=== PATIENT | female | born 2000 | race Caucasian/White ===

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

== ENCOUNTER 2022-01-14 12:28 | Emergency (ER) | payer SELFPAY ==
[2022-01-14 12:30] VITALS: BP 117/68; PULSE 100; RESP 18; TEMP 36.8; O2SAT 98; BMI 34.2
[2022-01-14 12:52] LABS: Apearance,Urine Cloudy (Clear); Blood, Urine Negative (Negative); Color,Urine Yellow (Yellow); Glucose,Urine (UA) Negative (Negative); Ketones,Urine TRACE (Negative); PH,Urine 5.5 (5.0-8.5); Protein,Urine 2+ (Negative); Specific Gravity, Urine >= 1.030 (1.005-1.030)
[2022-01-14 12:53] LABS: Bilirubin,Urine 2+ (Negative); UTC Leukocyte Esterase,Urine 3+ (Negative); UTC Nitrate,Urine Negative (Negative); UTC Pregnancy Test, Urine Negative (Negative); Urobilinogen,Urine 1 EU/dl (0.2)
[2022-01-14 12:55] VITALS: BP 117/68; PULSE 100; RESP 18; TEMP 36.8; O2SAT 98
--- NOTE | 2022-01-14 12:55 | HMH.EDUTC ---
[facility] [place] Clinical Impression: Urinary tract infection Qualifiers: Urinary tract infection type: acute cystitis Hematuria presence: without hematuria Qualified Code(s): N30.00 - Acute cystitis without hematuria Vomiting Qualifiers: Vomiting type: unspecified Nausea presence: with nausea Qualified Code(s): R11.2 - Nausea with vomiting, unspecified Disposition: Home, Self-Care Condition on Discharge: Good Instructions: Urinary Tract Infection, Nausea and Vomiting-Adult Additional Instructions: Monitor temperature. Seek treatment if fever develops. Follow-up immediately if new or worse symptoms worsen or no noticeable improvement over 48 hours. Increase fluids such as water, Gatorade, Powerade, juice or Pedialyte with limited formula/dietary in children No food is okay as long as you are drinking. Once ready to eat start bland such as bananas, rice, applesauce, toast. Contagious until no diarrhea, vomiting, fever times 48 hours without medication Avoid antidiarrheals unless told otherwise. Best to let the virus run its course. Follow-up immediately for new or worsening symptoms or no noticeable improvement over the next 48 hours. Increase fluids, water and not soda or tea. Can drink cranberry juice or cranberry extract. White front to back Wear cotton underwear Empty bladder after intercourse Start antibiotics immediately and make sure you take the full course although you may start to see improvement over the next 48 hours. You can eat yogurt or take probiotics to decrease diarrhea or yeast infection caused by the antibiotic Be sure to follow-up anytime for new or worsening symptoms in 48 hours for wound urine culture results be sure to let you PCP no recent urine for culture so they can request records and ensure that you have appropriate antibiotic if you are not getting better or getting worse. If symptoms worsen or do not improve return or be seen in the ER. Follow-up with primary care this week. Prescriptions: cephALEXin [Cephalexin 500mg Tab] 500 mg PO BID 7 Days #14 tab [facility]: [facility] Ondansetron [Zofran 4mg ODT] 4 mg PO TIDP PRN 3 Days #14 tab PRN Reason: Nausea Transmission Status: Pending to [facility] Referrals: Gaby Ballard APRN [Primary Care Provider] - Time of Disposition: 12:58 Medical Decision Making - Akira Inquiry Pt receiving controlled substance: No Vital Signs: 05/01/22 12:30 Temperature 98.3 F Temperature Source Oral Pulse Rate [Right Brachial] 100 H Respiratory Rate 18 Blood Pressure [Right Arm] 117/68 Blood Pressure Mean [Right Arm] 84 Blood Pressure Source [Right Arm] Automatic Cuff Blood Pressure Position [Right Arm] Sitting 02 Sat by Pulse Oximetry 98 Oxygen Delivery Method Room Air - Lab Data Lab Results 01/14/22 12:50: Urine Color Yellow, Urine Appearance Cloudy, Urine pH 5.5, Ur Specific Mabel >= 1.030, Urine Protein 2+, Urine Glucose (UA) Negative, Urine Ketones Trace, Urine Blood Negative, Urine Nitrate Negative, Urine Bilirubin 2+ A, Urine Urobilinogen 1, Ur Leukocyte Esterase 3+ A, Tst Clinic Negative Orders (Tests/Meds): ORDERS Category Date Time Status Urine Culture Stat Micro 01/14/22 12:50 Ordered [facility] [place] HPI - General Chief complaint: Urgent [facility] Stated complaint: vomiting Time Seen by Provider: 01/14/22 12:55 Mode of Arrival: Ambulatory Source of Information: Patient Limitations: No Limitations Description of Symptoms (Recalled from Triage Doc. by RN): PATEINT C/O NAUSEA, VOMITING AND DIARRHEA SINCE THIS MORNING HEENT Symptoms (Recalled from RN notes): No Resp Symptoms (Recalled from RN notes): No Skin Symptoms (Recalled from RN notes): No MS Symptoms (Recalled from RN notes): No Functional Status (Recalled from RN notes): WNL - History of Present Illness Provider Complaint: 21 yr old female presnets for nausea/vomiting and diarreha that started this a
== END 2022-01-14 13:00 | disposition home or self-care (01) ==
PROVIDERS: Emergency Provider Nurse Practitioner Family; PCP Nurse Practitioner Family
DX: N30.00 Acute cystitis without hematuria (principal); F17.210 Nicotine dependence, cigarettes, uncomplicated
CPT/HCPCS: 81003; 81025; 87086; 99212; G0463

== ENCOUNTER 2022-01-21 11:23 | Emergency (ER) | payer SELFPAY ==
[2022-01-21 12:04] VITALS: BP 129/90; PULSE 84; RESP 18; TEMP 36.6; O2SAT 96; BMI 33.2
--- NOTE | 2022-01-21 12:18 | HMH.EDUTC ---
[facility] [place] Clinical Impression: Urinary tract infection Qualifiers: Urinary tract infection type: site unspecified Hematuria presence: with hematuria Qualified Code(s): N39.0 - Urinary tract infection, site not specified; R31.9 - Hematuria, unspecified Disposition: Home, Self-Care Condition on Discharge: Good Instructions: DI for Urinary Tract Infection (UTI), Phenazopyridine, Nitrofurantoin Additional Instructions: *Increase fluids. Water not Soda or Tea *Start antibiotic immediately and be sure to take as ordered for the FULL length of time although you should start to see improvement over the next 48 hours *Pyridium as needed Remember this medication will turn your urine Sperry. This is normal but it will stain what ever it gets on *You should not use Pyridium for more than 48 hours. If so , follow up with your primary physician to review urine culture and ensure that antibiotic is adequate for infection *Be SURE to follow up anytime for new or worsening symptoms with your family doctor. AND in 48 hours for urine culture results with your family doctor, if you do not have a doctor then you may call back to the [facility] for urine culture results and further treatment. We do recommend that you choose and establish care with a Primary Care Physician. AND follow up with them in 10-14 days to repeat UA to ensure infection is resolved and blood no longer present *Be sure to let your PCP know that we sent urine cultures from the [facility] so they can follow up to ensure that you area the on the correct antibiotic Call your doctor office and make appointment for 48 hours (2 days from today) to follow up and get the results of your urine culture and further treatment Prescriptions: Nitrofurantoin Monohyd/M-Cryst [Macrobid 100 mg Capsule] 100 mg PO BID #14 cap Transmission Status: Pending to [id number] Phenazopyridine HCl [Pyridium 200mg Tablet] 200 pow PO TID #6 tab Transmission Status: Pending to [id number] Referrals: Gaby Ballard APRN [Primary Care Provider] - As needed Time of Disposition: 12:29 Medical Decision Making - Akira Inquiry Pt receiving controlled substance: No Akira was queried for this patient: No Vital Signs: 01/21/22 12:04 Temperature 97.9 F Temperature Source Oral Pulse Rate [Left] 84 Respiratory Rate 18 Blood Pressure [Right Arm] 129/90 Blood Pressure Mean [Right Arm] 103 02 Sat by Pulse Oximetry 96 - Lab Data Lab results reviewed: Yes: I reviewed the patient's lab results. [facility] [place] - General Stated complaint: possible uti Time Seen by Provider: 01/21/22 12:18 Mode of Arrival: Ambulatory Source of Information: Patient Limitations: No Limitations Description of Symptoms (Recalled from Triage Doc. by RN): pt states that she had a UTI saturday. pt did have e.coli in urine culture. they toldher if she did not get better to come back. that is what she is here for HEENT Symptoms (Recalled from RN notes): No Resp Symptoms (Recalled from RN notes): No Skin Symptoms (Recalled from RN notes): No MS Symptoms (Recalled from RN notes): No Functional Status (Recalled from RN notes): wnl - History of Present Illness Provider Complaint: Patient states that she was recently seen and treated for UTI States that initially she thinks she may have had the stomach bug along with it States that she has finished all her medication but she is still having burning with urination and feeling of urgency and frequency States that today she was still not feeling any better so she came in - Related Data Home Medications Medication Instructions Recorded Confirmed norgestimate-ethinyl estradioL 1 each PO DAILY 10/02/21 12/30/21 [Sprintec 28 Day Tablet] Previous Rx's Medication Instructions Recorded Ciprofloxacin HCl [Cipro 500mg 500 mg PO BID 5 Days #10 tab 12/30/21 Tab] Phenazopyridine HCl [Pyridium 200 pow PO TID #6 tab 12/30/21 200mg Tablet] Ondansetron [Zofran 4mg
[2022-01-21 12:36] VITALS: BP 129/90; PULSE 84; RESP 19; TEMP 36.6
[2022-01-21 13:52] LABS: Apearance,Urine Turbid (Clear); Color,Urine Yellow (Yellow); PH,Urine 6.5 (5.0-8.5)
[2022-01-21 13:54] LABS: Specific Gravity, Urine >= 1.030 (1.005-1.030)
[2022-01-21 13:55] LABS: Glucose,Urine (UA) Negative (Negative); Ketones,Urine SMALL (Negative); Protein,Urine 2+ (Negative)
[2022-01-21 13:56] LABS: Bilirubin,Urine 1+ (Negative); Blood, Urine 1+ (Negative)
[2022-01-21 13:57] LABS: UTC Leukocyte Esterase,Urine 3+ (Negative); UTC Nitrate,Urine Negative (Negative); Urobilinogen,Urine 0.2 EU/dl (0.2)
== END 2022-01-21 12:39 | disposition home or self-care (01) ==
PROVIDERS: Emergency Provider Nurse Practitioner; PCP Nurse Practitioner Family
DX: N39.0 Urinary tract infection, site not specified (principal); A49.8 Other bacterial infections of unspecified site; R31.9 Hematuria, unspecified; F17.210 Nicotine dependence, cigarettes, uncomplicated; Z79.51 Long term (current) use of inhaled steroids; Z79.890 Hormone replacement therapy
CPT/HCPCS: 81003; 87086; 99213; G0463

== ENCOUNTER 2022-01-23 09:25 | Emergency (ER) | payer SELFPAY ==
[2022-01-23 10:24] LABS: Color,Urine Dark Yellow (Yellow)
[2022-01-23 10:25] LABS: Apearance,Urine Clear (Clear); Bilirubin,Urine 2+ (Negative); Blood, Urine Negative (Negative); Glucose,Urine (UA) 100 (Negative); Ketones,Urine 15 (Negative); Protein,Urine 1+ (Negative); Urobilinogen,Urine 4 EU/dl (0.2)
[2022-01-23 10:26] VITALS: BP 140/90; PULSE 66; RESP 19; TEMP 36.8; O2SAT 98; BMI 32.3
[2022-01-23 10:26] LABS: UTC Leukocyte Esterase,Urine 3+ (Negative); UTC Nitrate,Urine Positive (Negative)
--- NOTE | 2022-01-23 10:31 | HMH.EDUTC ---
[facility] [place] Disposition Clinical Impression: STD exposure UTI (urinary tract infection) Qualifiers: Urinary tract infection type: site unspecified Hematuria presence: with hematuria Qualified Code(s): N39.0 - Urinary tract infection, site not specified Disposition: Home, Self-Care Condition on Discharge: Good Instructions: How to Detect and Treat STDs, DI for Urinary Tract Infection (UTI) Additional Instructions: Drink plenty of fluids. Start drinking cranberry juice every day. At least 1 glass full, if you can stand to drink it. Take tylenol or ibuprofen for pain or fever. Take the medications as directed. Follow up with your regular doctor. GO TO THE ER FOR ANY WORSENING SYMPTOMS The pyridium will make your urine turn orange, this is an expected side effect. It will stain your clothes if it comes into contact with them. We will culture the urine. That will tell what bacteria is causing your infection and which antibiotics will treat it best. Sometimes the first antibiotic we prescribe turns out to not work against different bacteria. So, make sure you follow up within 3 days if you are not getting better. Make sure you finish the antibiotics. The other tests that were started today will take around 2 days to finish. Please follow up with your primary care physician for the results. Make sure you practice safe sex. Prescriptions: Ondansetron [Zofran 4mg ODT] 4 mg PO Q8HP PRN #20 tab PRN Reason: Nausea Transmission Status: Received by [facility] Sulfamethoxazole/Trimethoprim [Bactrim DS tablet] 1 each PO BID 10 Days #20 tab Transmission Status: Received by [facility] Fluconazole [Diflucan 150mg tab] 150 mg PO ONCE #1 tab Transmission Status: Received by [facility] Phenazopyridine HCl [Pyridium 200mg Tablet] 200 pow PO TID #6 tab Transmission Status: Received by [facility] Referrals: Gaby Ballard APRN [Primary Care Provider] - Time of Disposition: 10:49 Medical Decision Making - Medical Records Medical records reviewed: No: I reviewed the patient's medical records. - Akira Inquiry Pt receiving controlled substance: No Vital Signs: 01/23/22 10:26 01/23/22 10:53 Temperature 98.2 F 98.2 F Temperature Source Oral Pulse Rate 66 Pulse Rate [Radial] 66 Respiratory Rate 19 19 Blood Pressure 140/90 Blood Pressure [Right Arm] 140/90 Blood Pressure Mean [Right Arm] 106 02 Sat by Pulse Oximetry 98 - Lab Data Lab results reviewed: Yes: I reviewed the patient's lab results. Lab Results 01/23/22 10:06: Urine Color Dark yellow, Urine Appearance Clear, Urine pH 6.0, Ur Specific Dyer 1.020, Urine Protein 1+, Urine Glucose (UA) 100, Urine Ketones 15, Urine Blood Negative, Urine Nitrate Positive A, Urine Bilirubin 2+ A, Urine Urobilinogen 4, Ur Leukocyte Esterase 3+ A Orders (Tests/Meds): ORDERS Category Date Time Status Urine Culture Stat Micro 01/23/22 10:06 Received [facility] [place] HPI - General Stated complaint: std check Time Seen by Provider: 01/23/22 10:35 Mode of Arrival: Ambulatory Source of Information: Patient Limitations: No Limitations Description of Symptoms (Recalled from Triage Doc. by RN): pt here for std/sti check through urine sample HEENT Symptoms (Recalled from RN notes): No Resp Symptoms (Recalled from RN notes): No Skin Symptoms (Recalled from RN notes): No MS Symptoms (Recalled from RN notes): No Functional Status (Recalled from RN notes): wnl - History of Present Illness Provider Complaint: She is here because she keeps getting UTIs kind of frequently and someone told her to get checked for an std to make sure that is not the problem. She denies any fever. She has had low back pain and burning with urination for the past 3 days. She denies any vaginal discharge or other symptoms. - Related Data Home Medications Medication Instructions Recorded Confirmed norgestimate-ethi
[2022-01-23 10:53] VITALS: BP 140/90; PULSE 66; RESP 19; TEMP 36.8
[2022-01-24 22:12] LABS: Neisseria gonorrhoeae, NAA Negative (Negative)
== END 2022-01-23 10:56 | disposition home or self-care (01) ==
PROVIDERS: Emergency Provider Nurse Practitioner Family; PCP Nurse Practitioner Family
DX: R31.9 Hematuria, unspecified; M54.50 Low back pain, unspecified; F17.210 Nicotine dependence, cigarettes, uncomplicated; Z79.52 Long term (current) use of systemic steroids; Z79.899 Other long term (current) drug therapy; Z20.2 Contact with and (suspected) exposure to infections with a predominantly sexual mode of transmission
CPT/HCPCS: 81003; 87086; 87491; 87591; 99213; G0463

== ENCOUNTER 2022-03-07 12:51 | Emergency (ER) | payer OTHER, SELFPAY ==
--- NOTE | 2022-03-07 13:02 | HMH.EDUTC ---
[facility] [place] Clinical Impression: Low back pain Qualifiers: Chronicity: acute Back pain laterality: bilateral Sciatica presence: without sciatica Qualified Code(s): M54.50 - Low back pain, unspecified Disposition: Home, Self-Care Condition on Discharge: Good Instructions: Low Back Pain, DI for Low Back Pain Additional Instructions: Go home and rest. It would be best if you rested tomorrow too. No heavy lifting. No twisting. Take the oral medications as directed. The muscle relaxer (cyclobenzaprine--Flexeril) will make you drowsy, so don't drive or operate heavy machinery after taking it. Follow up with your regular doctor. GO TO THE ER FOR ANY WORSENING SYMPTOMS OR CONCERN, ESPECIALLY BOWEL OR BLADDER ISSUES, SADDLE AREA NUMBNESS, FEVER, ETC Prescriptions: Cyclobenzaprine HCl [Cyclobenzaprine 10mg Tab] 10 mg PO BIDP PRN #20 tab PRN Reason: Muscle Spasm Transmission Status: Received by [facility] Naproxen [Naproxen 375mg Tab] 375 mg PO BIDP PRN #30 tab PRN Reason: Moderate Pain Transmission Status: Received by [id number] Referrals: Gaby Ballard APRN [Primary Care Provider] - Time of Disposition: 13:17 Medical Decision Making - Medical Records Medical records reviewed: No: I reviewed the patient's medical records. - Akira Inquiry Pt receiving controlled substance: No Vital Signs: 03/07/22 13:04 03/07/22 13:19 Temperature 97.8 F 97.8 F Temperature Source Oral Pulse Rate 66 Pulse Rate [Left Radial] 66 Respiratory Rate 18 18 Blood Pressure 127/80 Blood Pressure [Right Arm] 127/80 Blood Pressure Mean [Right Arm] 95 02 Sat by Pulse Oximetry 96 [facility] [place] - General Stated complaint: back pain, no accident Time Seen by Provider: 03/07/22 13:02 - History of Present Illness Provider Complaint: She states that for the past 2 days she has had low back pain. She denies any known injury or any recent trauma or falls. - Related Data Home Medications Medication Instructions Recorded Confirmed norgestimate-ethinyl estradioL 1 each PO DAILY 10/02/21 12/30/21 [Sprintec 28 Day Tablet] Previous Rx's Medication Instructions Recorded Phenazopyridine HCl [Pyridium 200 pow PO TID #6 tab 12/30/21 200mg Tablet] Ondansetron [Zofran 4mg ODT] 4 mg PO TIDP PRN 3 Days #14 tab 01/14/22 Phenazopyridine HCl [Pyridium 200 pow PO TID #6 tab 01/21/22 200mg Tablet] Fluconazole [Diflucan 150mg tab] 150 mg PO ONCE #1 tab 01/23/22 Ondansetron [Zofran 4mg ODT] 4 mg PO Q8HP PRN #20 tab 01/23/22 Phenazopyridine HCl [Pyridium 200 pow PO TID #6 tab 01/23/22 200mg Tablet] Sulfamethoxazole/Trimethoprim 1 each PO BID 10 Days #20 tab 01/23/22 [Bactrim DS tablet] Cyclobenzaprine HCl 10 mg PO BIDP PRN #20 tab 03/07/22 [Cyclobenzaprine 10mg Tab] Naproxen [Naproxen 375mg Tab] 375 mg PO BIDP PRN #30 tab 03/07/22 Allergies Allergy/AdvReac Type Severity Reaction Status Date / Time No Known Allergies Allergy Verified 03/07/22 13:07 [facility] History - Hepatitis A Screen Attestation statement:: This patient has been screened for Hepatitis A risk factors. I have reviewed the patient's past medical history: Yes Medical History: Denies:: Cancer, Diabetes Mellitus Type 1, Diabetes Mellitus Type 2, Internal Pacemaker, MRSA Other Surgeries: No: Pacemaker Amputation: No Fractures: No - Social History Smoking Status: Current every day smoker Tobacco Type: cigarettes # Packs/Day (cigarettes): 1 Alcohol Intake: never Substance Use Type: marijuana (she smokes pot when she can; not as much as she used to; maybe every other day) Occupational Status: other Housing: house Household Members: family ROS Obtained: Yes All systems reviewed & no additional complaints - Constitutional Constitutional: Denies chills, Denies fever(s) - Musculoskeletal Musculoskeletal: Denies joint pain, Reports back pain, Denies neck pain - Integumentar
[2022-03-07 13:04] VITALS: BP 127/80; PULSE 66; RESP 18; TEMP 36.6; O2SAT 96; BMI 28.6
[2022-03-07 13:19] VITALS: BP 127/80; PULSE 66; RESP 18; TEMP 36.6
== END 2022-03-07 13:25 | disposition home or self-care (01) ==
PROVIDERS: Emergency Provider Nurse Practitioner Family; PCP Nurse Practitioner Family
DX: M54.50 Low back pain, unspecified (principal)
CPT/HCPCS: 99212; G0463

== ENCOUNTER 2022-07-09 15:08 | Emergency (ER) | payer OTHER, SELFPAY ==
[2022-07-09 15:09] VITALS: BP 116/72; PULSE 63; RESP 18; TEMP 37.2; O2SAT 98; BMI 28.5
--- NOTE | 2022-07-09 16:50 | EXP.UTC ---
Discharge Plan Disposition Patient Disposition: Home, Self-Care Condition: Good Prescriptions Prescriptions: New hsngmhemiowjrwp-rvbdbwixo-EY [Bromfed DM] 2-30-10 mg/5 mL Syrup 10 ml PO Q4H PRN (Reason: Cough) Qty: 200 0RF prednisone 20 mg tablet 20 mg PO BID Qty: 10 0RF azithromycin [Zithromax Z-Carmelo] 250 mg tablet See Rx Instructions .ROUTE .COMPLEX 5 Days Qty: 6 0RF Rx Instructions: For 250 mg dose pack: take 500 mg today (day 1), then 250 mg for 4 days (days 2-5) albuterol sulfate [Proventil HFA] 90 mcg/actuation HFA aerosol inhaler 1 inh inhalation Q6H PRN (Reason: shortness of breath or wheezing) Qty: 8.5 0RF No Action norgestimate-ethinyl estradiol 1 EACH tablet 1 each PO DAILY phenazopyridine 200 MG tablet 200 pow PO TID Qty: 6 0RF ondansetron 4 MG tablet,disintegrating 4 mg PO TIDP PRN (Reason: Nausea) 3 Days Qty: 14 0RF phenazopyridine 200 MG tablet 200 pow PO TID Qty: 6 0RF fluconazole 150 MG tablet 150 mg PO ONCE Qty: 1 2RF phenazopyridine 200 MG tablet 200 pow PO TID Qty: 6 0RF sulfamethoxazole-trimethoprim 1 EACH tablet 1 each PO BID 10 Days Qty: 20 0RF ondansetron 4 MG tablet,disintegrating 4 mg PO Q8HP PRN (Reason: Nausea) Qty: 20 0RF cyclobenzaprine 10 MG tablet 10 mg PO BIDP PRN (Reason: Muscle Spasm) Qty: 20 0RF naproxen 375 MG tablet 375 mg PO BIDP PRN (Reason: Moderate Pain) Qty: 30 0RF Referrals Follow up/Referrals: Gaby Ballard APRN [Primary Care Provider] - See instructions Activity Restrictions/Add. Instructions Additional Instructions/Restrictions: Start antibiotic today. Be sure to complete entire prescription even if feeling better Monitor temp. Tylenol every 4 hours as needed and / or ibuprofen every 6 hours as needed ( As long as your primary care physician has told you that it ok to take both. For fever/aches/pains ER if no less than 101 despite Tylenol or Motrin Humidifier/vaporizer or hot steamy shower Inhaler every 4-6 hours as needed like we discussed. If unsure how to use it, ask pharmacist to demonstrate how. Should help open airways and improve cough, wheezing, and shortness of breath *Start steroid today. Helps with inflammation therefore, cough and wheezing. Follow directions on the package. Reviewed side effects. Patient reports taking them before. Follow up IMMEDIATELY for new or worsening of symptoms OR no noticeable improvement over the next 48-72 hours. 911 immediately for any life threatening symptoms such as chest pain or difficulty breathing Clinical Impressions Clinical Impression: Sinusitis, Bronchitis Stand Alone Forms Stand Alone Forms: Work/School Release Instructions Patient Instructions: DI for Sinusitis, Sinusitis, Acute Bronchitis Discharge ED Provider: Dolly Okeefe [facility] General Stated complaint: cough Mode of Arrival: Ambulatory Source of Information: Patient Limitations: No Limitations Time Seen by Provider: 07/09/22 16:50 Description of Symptoms (Recalled from Triage Doc. by RN): coughing runny nose sore throat congestion HEENT Symptoms (Recalled from RN notes): Yes Resp Symptoms (Recalled from RN notes): Yes Skin Symptoms (Recalled from RN notes): No MS Symptoms (Recalled from RN notes): No Functional Status (Recalled from RN notes): n/a History of Present Illness Provider Complaint: Patient states that she started with sinus congestion a week or so ago and she thought it was just allergies but it has continued to get worse States that it feels like it is moving into her chest and she is coughing stuff up at times States that today she was still not feeling well and her throat was feeling scratchy so came in to get checked out Related Data Home Medications Medication Instructions Recorded Confirmed norgestimate 0.25 mg-ethinyl 1 each PO DAILY REGULATE PERIODS 10/02/21 12/30/21 estrad
[2022-07-09 17:16] LABS: UTC Pregnancy Test, Urine Negative (Negative)
[2022-07-09 17:28] VITALS: BP 116/72; PULSE 63; RESP 18; TEMP 37.2; O2SAT 98
== END 2022-07-09 17:30 | disposition home or self-care (01) ==
PROVIDERS: Emergency Provider Nurse Practitioner; PCP Nurse Practitioner Family
DX: J02.9 Acute pharyngitis, unspecified (principal); R06.02 Shortness of breath; R09.89 Other specified symptoms and signs involving the circulatory and respiratory systems; R05.9 Cough, unspecified; M62.838 Other muscle spasm; F17.210 Nicotine dependence, cigarettes, uncomplicated; Z79.51 Long term (current) use of inhaled steroids; Z79.52 Long term (current) use of systemic steroids; Z79.899 Other long term (current) drug therapy; Z88.2 Allergy status to sulfonamides
CPT/HCPCS: 81025; 99213; G0463

== ENCOUNTER → 2022-07-16 16:38 | Outpatient (CLI) | payer OTHER, SELFPAY | PROVIDERS: PCP Nurse Practitioner Family | DX: Z79.899 Other long term (current) drug therapy (principal) ==

== ENCOUNTER 2024-10-12 18:43 | Emergency (ER) | payer OTHER, SELFPAY ==
[2024-10-12 18:55] VITALS: BP 129/70; PULSE 63; RESP 20; TEMP 36.9; O2SAT 97; BMI 31.7
--- NOTE | 2024-10-12 19:10 | ED_ITS ---
Discharge Plan Disposition Patient Disposition: Home, Self-Care Condition: Good Prescriptions Prescriptions: New fluticasone propionate [Flonase Allergy Relief] 50 mcg/actuation spray,suspension 2 spray intranasal DAILY Qty: 16 0RF Rx Instructions: administer into each nostril daily methylprednisolone [Medrol (Carmelo)] 4 mg tablets,dose pack See Rx Instructions .Route .COMPLEX 6 Days Qty: 21 0RF Rx Instructions: taper pack; Referrals Follow up/Referrals: Gaby Ballard APRN [Primary Care Provider] - See instructions Activity Restrictions/Add. Instructions Additional Instructions/Restrictions: *Monitor Temp, Over the counter Motrin or Tylenol as directed/as needed Tylenol every 4 hours and Motrin every 6 hours (as long as your family doctor has told you that you can take it) for fever or pain. and straight to ER if unable to lower temp less than 101.0 after medication given *Warm salt water gargles may help to soothe the throat *Throat Lozenges? *Warm fluids like tea with honey may help to soothe the throat? *Sleep elevated *Humidifier/Vaporizer *Flonase 2 sprays in each nostril daily but be aware that it may take 2-3 days before you notice improvement Start medro pack and take as directed Follow up IMMEDIATELY for new or worsening symptoms or no Noticeable improvement over the next 48-72 hours. 911 for difficulty breathing or swallowing Clinical Impressions Clinical Impression: Nasal congestion Instructions Patient Instructions: DI for Nasal Congestion Print Language Print Language: Citizen [place] Discharge ED Provider: Dolly Okeefe [facility] [place] General Stated complaint: stuffy nose, wheezing Mode of Arrival: Ambulatory Source of Information: Patient Limitations: No Limitations Time Seen by Provider: 10/12/24 19:10 Description of Symptoms (Recalled from Triage Doc. by RN): PATIENT C/O NASAL CONGESTION AND SNEEZING X 2 DAYS HEENT Symptoms (Recalled from RN notes): Yes Resp Symptoms (Recalled from RN notes): No Skin Symptoms (Recalled from RN notes): No MS Symptoms (Recalled from RN notes): No Functional Status (Recalled from RN notes): WNL History of Present Illness Provider Complaint: Patient states that she started having nasal congestion and pressure on and off for a week worse in the last 2 days States that a couple times she woke up and felt like she was wheezing but it went away when she got up moving around States that she has been taking her allergy medication but it hasnt help Related Data Previous Rx's ?Medication ?Instructions ?Recorded fluticasone propionate 50 2 spray intranasal DAILY #16 grams 10/12/24 mcg/actuation nasal spray,suspension (Flonase Allergy Relief) methylprednisolone 4 mg tablets in See Rx Instructions .Route 10/12/24 a dose pack (Medrol (Carmelo)) .COMPLEX 6 days #21 tabs Allergies Allergy/AdvReac Type Severity Reaction Status Date / Time No Known Allergies Allergy Verified 03/07/22 13:07 Worker's Comp Is this a Worker's Comp case?: No [facility] Disclaimer: The information contained in this section may have been updated after the patient was seen, as this information can be updated by other users. Medical History (Updated 10/12/24 @ 19:20 by Dolly Okeefe APRN) Depression Anxiety Urinary tract infection Asthma Social History Smoking Status: Current every day smoker tobacco type: cigarettes packs per day: 1 alcohol intake: never substance use type: marijuana (she smokes pot when she can; not as much as she used to; maybe every other day) current occupational status: other Travel in the last 8 weeks: None household members: family housing: house number of children: 0 current occupational exposures/hazards: No caffeine: Yes Have you lived/traveled outside [place] in past 30 days?: No Contact w/someone who lives/traveled outside [place] past 30 days?: No Exposure to someone with infectious disease in past 14 days?: No Do you have a fever (greater than 100.4 F or 38 C)?: No Have you tested positive for COVID-19: No Exposed to someone with COVID-19 in past 14 days?: No Do you have a sore throat?: No Do you have a cough?: No Do you have any weakness?: No Do you have any diarrhea?: No Are you experiencing any unusual bleeding?: No Do you have any muscle aches/pain?: No Do you have any abdominal pain?: No Are you experiencing loss of taste or smell?: No ROS Obtained: Yes All systems reviewed & no additional complaints except as documented and Yes Systems reviewed as appropriate & no additional complaints except as documented Constitutional Constitutional: Reports system reviewed and no additional complaints, except as documented, Reports as per HPI, Denies body ache, Denies chills and Denies fever(s) ENT Ears, Nose, Mouth, and Throat: Reports system reviewed and no additional complaints, except as documented, Reports as per HPI, Reports nasal congestion and Reports nasal discharge Cardiovascular Cardiovascular: Reports system reviewed and no additional complaints, except as documented and Reports as per HPI Respiratory Respiratory: Reports system reviewed and no additional complaints, except as documented, Reports as per HPI, Reports cough and Reports wheezing (felt like she was wheezing when she woke up but not now) Allergic/Immunologic Allergic/Immunologic: Reports wheezing (felt like she was wheezing when she woke up but not now) Physical Exam General General appearance: alert and in no apparent distress ENT ENT exam: Present mucous membranes moist Expanded ENT Exam Nose exam: Present sinus tenderness Throat exam: Present other (Mild PND noted) Respiratory Respiratory exam: Present normal lung sounds bilaterally; Absent respiratory distress or wheezes Cardiovascular Cardiovascular exam: Present regular rate, normal rhythm and normal heart sounds Neurological Exam Neurological exam: Present alert, oriented X3 and normal gait Medical Decision Making Medical Records Screening: Per USPSTF and CDC recommendations, given the prevalence of disease in our region, it is our hospital?s policy to screen for HIV and viral Hepatitis for all patients aged 18 and over and those with ongoing risk factors. Akira Inquiry Pt receiving controlled substance: No Vital Signs: 10/12/24 18:55 Temperature 98.4 F Temperature Source Oral Pulse Rate [Left Brachial] 63 Respiratory Rate 20 Blood Pressure [Left Arm] 129/70 Blood Pressure Mean [Left Arm] 89 Blood Pressure Source [Left Arm] Automatic Cuff Blood Pressure Position [Left Arm] Sitting 02 Sat by Pulse Oximetry 97 Oxygen Delivery Method Room Air
[2024-10-12 19:25] VITALS: BP 129/70; PULSE 63; RESP 20; TEMP 36.9; O2SAT 97
== END 2024-10-12 19:26 | disposition home or self-care (01) ==
PROVIDERS: Emergency Provider Nurse Practitioner; PCP Nurse Practitioner Family
DX: R09.81 Nasal congestion (principal)
CPT/HCPCS: 99212; G0381